=== PATIENT | female | born 1950 | race Caucasian/White ===

== ENCOUNTER → 2019-06-29 06:43 | Day surgery (SDC) | payer MEDICARE, BC ==
[~2019-06-29 06:43] MED LIST: Acetaminophen TAB* 325 MG PO ONE; Acetaminophen TAB* 325 MG PO PRN; Buffered Lidocaine 1% SYRIN* 1 ML/SYRINGE INTRADERM ONE; Bupivacaine 0.25% SDV* 30 ML ONE; DiMENhydriNATE IV* 50 MG/ML VIAL IV PUSH PRN; Famotidine IV* 10 MG/ML 2 ML (20 mg) IV SLOW PU ONE; Famotidine IV* 10 MG/ML 2 ML (20 mg) ONE; Ketorolac INJ* 30 MG/ML 1 ML VIAL ONE; Lactated Ringers 1000 ML Bag* 1,000 ML IV SCH; Lidocaine 1% INJ* 10 MG/ML 30 ML SDV ONE; Lidocaine 2% PF * 5 ML VIAL ONE; Lidocaine 2.5%/Prilocain 2.5%* 5 GM TUBE ONE; Midazolam* 1 MG/ML 5 ML VIAL (5 MG) ONE; Naloxone* 0.4 MG/ML 1 ML VIAL IV PRN; Ondansetron INJ* 2 MG/ML VIAL ONE; Propofol* 10 MG/ML 20 ML BTL ONE; ceFAZolin 2 GM PREMIX in ORs 2 GM/50 ML BAG ONE; fentaNYL* 50 MCG/ML 2 ML VIAL (100 MCG VIAL) ONE; oxyCODONE/Acetamin 5/325 MG* TAB ONE
--- NOTE | 2019-06-29 12:55 | BRIEFOPN ---
Brief Operative/Procedure Note - Operation Details Pre-Op Diagnosis: Left intraductal papilloma Post-Op Diagnosis: Same Procedures: Excisional biopsy of left breast mass with needle localization Surgeon(s)/Proceduralists: Sofiya. Celery Cutter: Sadia Sotomayor NP Anesthesia: MAC Estimated Blood Loss: Minimal Findings: Left breast mass. Mamommography confirmed wire and clip in specimen Specimen(s)/Culture(s) Description: Left breast mass Complications: None. No drains.
[2019-06-29 13:14] VITALS: BP 146/68
--- NOTE | 2019-06-30 01:22 | OP ---
CC: Benita Cárdenas NP * DATE OF OPERATION: 06/29/19 - [facility] DATE OF : 50 SURGEON: Nallely Arriaza MD SHIP SCALER: Ashley Sotomayor NP ANESTHESIOLOGIST: Dr. Amaro. ANESTHESIA: MAC. PRE-OP DIAGNOSIS: Intraductal papilloma of the left breast. POST-OP DIAGNOSIS: Intraductal papilloma of the left breast. OPERATIVE PROCEDURE: Excisional biopsy of left breast mass with needle localization. INDICATIONS: Lyndsay Bob is a 69-year-old woman who underwent screening mammography and was found to have a suspicious nodule in the left breast. She underwent core needle biopsy and pathology showed intraductal papilloma. In the clinic, I discussed with the patient that the finding is benign and can be monitored. However, the patient was uncomfortable with monitoring and really preferred to have the lesion removed. I discussed risks of the surgery including but not limited to bleeding, infection, or hematoma or seroma. She agreed to proceed with surgery. ESTIMATED BLOOD LOSS: Minimal. FINDINGS: Left breast tissue removed, and wire and clip confirmed to be in the specimen with mammography. DESCRIPTION OF PROCEDURE: Prior to going to the operating room, the patient was brought to Radiology for needle localization of the left breast nodule with completion mammogram. The patient was then brought to the OR and placed in the supine position on the OR table. SCDs were placed. The patient was warmed. She was given cefazolin 2 g. Monitored anesthesia was administered. The left breast was prepped and draped in the usual sterile fashion. A time-out was called confirming the patient's name, date of , and procedure. Marcaine 0.25% with lidocaine 1% was injected near the wire. An incision following the skin crease was made with a scalpel. The incision was taken down through the breast tissue using electrocautery. A cone of tissue was taken around the wire using electrocautery. The specimen was oriented and sent for mammography. Imaging confirmed adequate tissue around the biopsy clip and the wire. The specimen was then sent to Pathology. On palpation of the cavity, there were no palpable abnormalities. The cavity was irrigated, and hemostasis was achieved with electrocautery. The wound was closed with interrupted 3-0 Vicryl dermal sutures. The skin was closed with a running 4-0 Monocryl. Needle and sponge counts were correct. The incision was covered with Steri-Strips and sterile gauze. The patient was extubated and brought to Recovery in stable condition. [id number]/[facility] #: [id number] [facility]
== END | disposition home or self-care (01) ==
LOC: SDS 06:43
PROVIDERS: ATTEND Surgery Surgical Critical Care
DX: D24.2 Benign neoplasm of left breast (principal); Z87.891 Personal history of nicotine dependence; I10 Essential (primary) hypertension; E78.5 Hyperlipidemia, unspecified; L71.9 Rosacea, unspecified
CPT/HCPCS: 88307; A9270-GY; J0690; J1885; J2250; J2405; J2704; J3010; J3490